=== PATIENT | female | born 1985 | race American Indian/Alaskan Native ===

== ENCOUNTER 2020-11-09 23:57 | Emergency (ER) | payer SELFPAY ==
[2020-11-10 01:26] VITALS: BP 111/76
[2020-11-10] MEDS ORDERED: TETANUS,DIPH,PERTUSS(ACELL) VACCINE 0.5 ML SYRINGE IM ONE (02:08)
[2020-11-10] MEDS ORDERED: LIDOCAINE (1%) 10 MG/1 ML VIAL 20 ML MDV INFILTRATI ONE (02:08)
[2020-11-10] MEDS ORDERED: ACETAMINOPHEN 500 MG TAB PO ONE (02:08)
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
== END 2020-11-10 05:08 | disposition home or self-care (01) ==
LOC: ED 23:57
DX: S01.111A Laceration without foreign body of right eyelid and periocular area, initial encounter (principal); S10.93XA Contusion of unspecified part of neck, initial encounter; M62.838 Other muscle spasm; Z98.890 Other specified postprocedural states; Z88.1 Allergy status to other antibiotic agents; Z79.899 Other long term (current) drug therapy; Y04.8XXA Assault by other bodily force, initial encounter; Y93.89 Activity, other specified; Y92.89 Other specified places as the place of occurrence of the external cause; Y99.8 Other external cause status
CPT/HCPCS: 70450; 70486; 72125; 90471; 90715; 99284

== ENCOUNTER 2020-11-26 10:37 | Emergency (ER) | payer SELFPAY ==
[2020-11-26 10:45] VITALS: BP 128/81
--- NOTE | 2020-11-26 12:05 | Emergency Department Report ---
Suture/Staple Removal - HPI Chief Complaint: Laceration/Recheck/Suture Stated Complaint: STITCHES REMOVAL Time Seen by Provider: 11/26/20 12:04 When Sutures or [place] Placed: 11/09/2020 Wound Location: right eyebrow ED Review of Systems ROS: Stated complaint: STITCHES REMOVAL Other details as noted in HPI Comment: All other systems reviewed and negative ED Past Medical Hx - Past Medical History Previous Medical History?: Yes Additional medical history: Heart mumur - Surgical History Past Surgical History?: No - Social History Smoking Status: Current Every Day Smoker Substance Use Type: Alcohol - Medications Home Medications: Home Medications Medication Instructions Recorded Confirmed Last Taken Type Ibuprofen [Motrin] 600 mg PO Q8H PRN #30 tablet 11/10/20 Unknown Rx Sulfamethoxazole/Trimethoprim 1 each PO Q12H #20 tablet 11/10/20 Unknown Rx [Bactrim DS TAB] Suture Removal Exam - Exam General: Vital signs noted. No distress. Alert and acting appropriately. Wound: No Pathologic Erythema, No Tenderness, No Drainage, No Pus, No Wound Dehiscence Other Systems: All other systems reviewed and are unremarkable. ED Course Vital Signs 11/26/20 10:44 Temperature 98.2 F Pulse Rate 66 Respiratory 16 Rate Blood Pressure 128/81 O2 Sat by Pulse 100 Oximetry ED Recheck MDM - Medical Decision Making Patient is a 35-year-old female presents emergency room with complaints of suture removal. She had the sutures placed to the right eyebrow on 11/09/2020. On exam there are sutures in place to the right eyebrow, no erythema, no increased warmth, no edema, no drainage, no fluctuance. All sutures removed without difficulty or complication, no signs of infection, no wound dehiscence. Discussed to follow-up with primary care doctor. Return to emergency room for any new or worsening symptoms. May use Mederma [id number] to help with scarring. Critical care attestation.: If time is entered above; I have spent that time in minutes in the direct care of this critically ill patient, excluding procedure time. ED Disposition Clinical Impression: Encounter for removal of sutures Disposition: DC-01 TO HOME OR SELFCARE Is pt being admited?: No Does the pt Need Aspirin: No Condition: Stable Additional Instructions: may use mederma over the counter to help with scarring. follow up with a primary care doctor. return to the emergency room for any new or worsening symptoms. Referrals: DEREK HOLLIS MD [Staff Physician] - 3-[address] [facility] [Provider Group] - 3-5 Days Time of Disposition: 12:06 Print Language: WELSH
== END 2020-11-26 12:45 | disposition home or self-care (01) ==
LOC: ED 10:37
DX: S01.81XD Laceration without foreign body of other part of head, subsequent encounter (principal); X58.XXXD Exposure to other specified factors, subsequent encounter